=== PATIENT | female | born 1985 | race Caucasian/White ===

== ENCOUNTER 2018-03-22 17:55 | Emergency (ER) | payer MEDICAID ==
[~2018-03-22] VITALS: Ht 154.9 cm; Wt 115.0 kg
[2018-03-22] MEDS ORDERED: morphine 4 MG/ML inj SYRINge IM ONE (18:20)
[2018-03-22] MEDS ORDERED: ondansetron 4mg rapidly disintigrating tab PO ONE (18:20)
[2018-03-22 19:27] VITALS: BP 156/97
== END 2018-03-22 19:46 | disposition home or self-care (01) ==
LOC: ER 17:56
DX: R10.13 Epigastric pain (principal)
CPT/HCPCS: 96372; 99283; J2270